=== PATIENT | male | born 1960 | race Caucasian/White ===

== ENCOUNTER 2018-03-31 17:44 | Emergency (ER) | payer OTHER ==
[~2018-03-31] VITALS: Ht 175.3 cm; Wt 79.2 kg
[2018-03-31 18:14] VITALS: BP 181/105
== END 2018-03-31 18:36 | disposition home or self-care (01) ==
LOC: ED 18:20
DX: K02.9 Dental caries, unspecified (principal); F17.210 Nicotine dependence, cigarettes, uncomplicated
CPT/HCPCS: 99283

== ENCOUNTER 2018-04-07 19:42 | Emergency (ER) | payer OTHER ==
[~2018-04-07] VITALS: Ht 175.3 cm; Wt 79.9 kg
[2018-04-07 19:44] VITALS: BP 177/101
[2018-04-07] MEDS ORDERED: HYDROcodone/APAP 5/325 TABLET ONE (20:01)
[2018-04-07] MEDS ORDERED: HYDROcodone/APAP 5/325 TABLET PO ONE (20:30)
== END 2018-04-07 20:40 | disposition home or self-care (01) ==
LOC: ED 20:15
DX: K02.9 Dental caries, unspecified (principal)
CPT/HCPCS: 99283